=== PATIENT | female | born 1965 | race Caucasian/White ===

== ENCOUNTER → 2016-07-26 | Day surgery (SDC) | payer BC ==
[~2016-07-26] MED LIST: ALLEGRA PO; AMBIEN PO; ATENOLOL50 MG PO; BLACK COHOSH200 MG PO; EXCEDRIN MIGRAI1 TA1 PO; GINKGO BILOBA120 M1 PO; HAIR, SKIN & N1 EAC2 PO; IBUPROFEN400 MG PO; MULTI-VITAMIN1 EAC1 PO; NASONEX17 GM; PREVACID PO; PRILOSEC40 MG PO; PROTONIX PO; TYLENOL #3 PO; VALARIAN ROOT PO; VENLAFAXINE HC150 MG PO; VITAMIN B 12 PO; VITAMIN B 6 PO; VITAMIN D31000 UNIT PO; VOLTAREN75 MG PO; WELLBUTRIN XL150 MG PO; ZYRTEC PO; [UNRECOGNIZED DRUG - OTHER] PO
--- NOTE | ~2016-07-26 | OR ---
Unit #: [id number] #: [id number] Patient: LEVI BEGUM [id number] [address] [place], [place] [address] [id number] O MR#: [id number] NAME: LEVI BEGUM ROOM: Date of Procedure: 07/26/2016 Admission Date: 07/26/2016 Surgeon: Óscar Patiño M.D. : 1965 Attending Physician: Óscar Patiño M.D. Referring Physician: Óscar Patiño M.D. Primary Care Physician: Osbaldo Cedillo M.D. OPERATIVE REPORT PRIMARY CARE PHYSICIAN Osbaldo Cedillo M.D. PREOPERATIVE DIAGNOSIS Colorectal cancer screening in an average-risk patient. PROCEDURE PERFORMED Colonoscopy up to cecum with good prep and visualization. POSTOPERATIVE DIAGNOSES Mild sigmoid and descending colon diverticulosis. Otherwise, normal examination up to cecum. The patient did not have any polyps. RECOMMENDATIONS Repeat colonoscopy in 10 years. SEDATION USED MAC. DESCRIPTION OF PROCEDURE Following detailed explanations of potential risks and complications of a colonoscopy, namely perforation, bleeding, and complications related to sedation, the patient was brought to GI lab and laid in the left lateral decubitus position. A digital rectal examination was performed, which was normal. Lubricated tip of the Olympus video colonoscope was inserted through the anus and advanced under direct vision. The scope was advanced and passed up to sigmoid into descending colon. Scant small diverticula were seen in this area. The scope tip was then navigated all the way up to cecum with visualization of the ileocecal valve and the appendiceal orifice. Preparation was excellent with good visualization and photodocumentation was obtained. Last few inches of the terminal ileum also visualized after intubation of the ileocecal valve and appeared normal. Successive segments of the colonic mucosa were examined upon withdrawal and appeared unremarkable. There being no polyps, mass lesions, or AVMs. Other than the scant diverticula seen in the left side, no other abnormalities noted. The patient did not have any internal hemorrhoids. The scope was then withdrawn. The patient returned to the recovery area. She tolerated the procedure without any postprocedure complications. Dictated by... Unit #: [id number] #: [id number] Patient: LEVI BEGUM Sheridan Aldana/alec TD: 07/26/2016 22:40 JOB #: [id number] OPERATIVE REPORT X Óscar Patiño MD PROCEDURE OPERATIVE NOTE
== END | disposition home or self-care (01) ==
LOC: COPS 07:27
PROVIDERS: Internal Medicine Gastroenterology
PROC: 0DJD8ZZ Inspection of Lower Intestinal Tract, Via Natural or Artificial Opening Endoscopic (ICD-10-PCS; principal; 2016-07-26 09:00)
DX: Z12.11 Encounter for screening for malignant neoplasm of colon (principal); K57.90 Diverticulosis of intestine, part unspecified, without perforation or abscess without bleeding; K21.9 Gastro-esophageal reflux disease without esophagitis; I10 Essential (primary) hypertension; Z79.899 Other long term (current) drug therapy; Z90.710 Acquired absence of both cervix and uterus; J30.9 Allergic rhinitis, unspecified
CPT/HCPCS: J2250